=== PATIENT | male | born 1995 | race Caucasian/White ===

== ENCOUNTER 2019-04-13 00:01 | Emergency (ER) | payer OTHER ==
[~2019-04-13] VITALS: Ht 180.3 cm; Wt 81.8 kg
[2019-04-13 03:36] VITALS: BP 135/85
== END 2019-04-13 03:41 | disposition home or self-care (01) ==
LOC: M ED 00:01 → EDBD 00:01 → M ED 03:41
DX: F43.20 Adjustment disorder, unspecified (principal)

== ENCOUNTER 2019-12-14 09:19 | Emergency (ER) | payer OTHER ==
[~2019-12-14] VITALS: Ht 180.3 cm; Wt 89.8 kg
[2019-12-14] MEDS ORDERED: CYCLOBENZAPRINE 10MG TABLET PO ONE (10:15)
[2019-12-14] MEDS ORDERED: LIDOCAINE 5% (LIDODERM) PATCH TD ONE (10:15)
[2019-12-14] MEDS ORDERED: ACETAMINOPHEN 500 MG TAB PO ONE (10:15)
[2019-12-14 10:33] LABS: APPEARANCE, URINE CLEAR (CLEAR); BACTERIA, URINE AUTO NEGATIVE (NEGATIVE); BILIRUBIN, URINE AUTO NEGATIVE (NEGATIVE); BLOOD, URINE BLOOD NEGATIVE (NEGATIVE); COLOR, URINE YELLOW (YELLOW); GLUCOSE, URINE (UA) AUTO NEGATIVE (NEGATIVE); KETONE, URINE AUTO 1+ mg/dL (NEGATIVE); LEUKOCYTE ESTERASE, URINE AUTO NEGATIVE (NEGATIVE); NITRITE, URINE AUTO NEGATIVE (NEGATIVE); PROTEIN, URINE AUTO NEGATIVE (NEGATIVE); RBC, URINE AUTO 2 /HPF (0-3); SPECIFIC GRAVITY URINE AUTO 1.021 (1.002-1.035); SQUAMOUS EPITHELIAL CELL UR AU 0 /HPF (0-6); UROBILINOGEN, URINE AUTO 0.2 mg/dL (0.0-2.0); WBC, URINE AUTO 1 /HPF (0-3)
--- NOTE | 2019-12-14 11:02 | REPVR ---
PROCEDURE INFORMATION: Exam: XR Lumbosacral Spine, 4 or 5 Views Exam date and time: 12/14/2019 10:43 AM Age: 24 years old Clinical indication: Pain and injury or trauma; Fall; Sprain or strain, lumbar ligaments; Low back pain; Additional info: Low back pain/ fall TECHNIQUE: Imaging protocol: XR of the lumbosacral spine, 5 views. Other technique: AP, both oblique, lateral and spot lateral views of the lumbar spine are submitted. COMPARISON: No relevant prior studies available. FINDINGS: Vertebrae: Small anterior vertebral body marginal osteophytes at T12-L1 and L1-L2. No acute lumbar spinal bony injury identified. Normal alignment. Straightening of the lumbar lordosis is present consistent with muscular spasm. Soft tissues: Unremarkable. IMPRESSION: 1. No acute lumbar spinal bony injury identified. 2. Probable lumbar muscular spasm. Electronically signed by: Zion Sauceda On 12/14/2019 11:02:37 AM
--- NOTE | 2019-12-14 11:03 | REPVR ---
PROCEDURE INFORMATION: Exam: XR Thoracic Spine, 3 Views Exam date and time: 12/14/2019 10:52 AM Age: 24 years old Clinical indication: Pain in thoracic spine; Additional info: Low back pain/ fall TECHNIQUE: Imaging protocol: XR of the thoracic spine, 3 views. Other technique: AP and lateral views and a swimmer's lateral view of the thoracic spine are submitted. COMPARISON: No relevant prior studies available. FINDINGS: Vertebrae: Normal. No acute fracture. Normal alignment. Soft tissues: Unremarkable. IMPRESSION: No acute findings. Electronically signed by: Zion Sauceda On 12/14/2019 11:03:30 AM
--- NOTE | 2019-12-14 11:04 | REPVR ---
PROCEDURE INFORMATION: Exam: XR Sacrum and Coccyx, 2 or More Views Exam date and time: 12/14/2019 10:52 AM Age: 24 years old Clinical indication: Pain in coccyx area; Additional info: Low back pain/ fall TECHNIQUE: Imaging protocol: XR of the sacrum and coccyx, AP inlet and outlet, and lateral views. COMPARISON: No relevant prior studies available. FINDINGS: Bones/joints: Normal. No acute fracture. Soft tissues: Normal. IMPRESSION: No acute findings. Electronically signed by: Zion Sauceda On 12/14/2019 11:04:25 AM
[2019-12-14] MEDS ORDERED: LIDO5DIS41 TOP (12:15)
[2019-12-14] MEDS ORDERED: CYCL5TAB PO (12:15)
[2019-12-14 12:26] VITALS: BP 145/84
[2019-12-14] MEDS ORDERED: **NOTE PATIENT COMMENT** MISC XX SCH (21:00)
== END 2019-12-14 12:49 | disposition home or self-care (01) ==
LOC: M ED 09:19
DX: S39.012A Strain of muscle, fascia and tendon of lower back, initial encounter (principal); S30.0XXA Contusion of lower back and pelvis, initial encounter; W19.XXXA Unspecified fall, initial encounter; Y92.9 Unspecified place or not applicable; Y93.9 Activity, unspecified; Y99.9 Unspecified external cause status

== ENCOUNTER 2020-07-29 11:15 | Emergency (ER) | payer OTHER ==
[~2020-07-29] VITALS: Ht 180.3 cm; Wt 88.6 kg
[~2020-07-29 11:15] MED LIST: CYCL5TAB PO; LIDO5DIS41 TOP
[2020-07-29 13:37] VITALS: BP 121/73
== END 2020-07-29 13:38 | disposition home or self-care (01) ==
LOC: M ED 11:15
DX: F43.20 Adjustment disorder, unspecified (principal); Z87.820 Personal history of traumatic brain injury

== ENCOUNTER 2020-08-28 20:34 | Emergency (ER) | payer OTHER ==
[~2020-08-28] VITALS: Ht 180.3 cm; Wt 86.4 kg
[2020-08-28 21:24] LABS: HEMATOCRIT 47.8 % (42.0-52.0); HEMOGLOBIN 16.8 g/dl (13.5-17.5); MEAN CORPUSCULAR HEMOGLOBIN 30.7 pg (27.0-33.0); MEAN CORPUSCULAR HGB CONC 35.1 g/dl (32.0-36.5); MEAN CORPUSCULAR VOLUME 87.2 fl (80.0-96.0); PLATELET COUNT, AUTOMATED 299 10^3/uL (150-450); RED BLOOD COUNT 5.48 10^6/uL (4.30-6.10); WHITE BLOOD COUNT 11.1 10^3/uL (4.0-10.0)
[2020-08-28 21:45] LABS: AMPHETAMINES LEVEL URINE NEGATIVE (NEGATIVE); BARBITURATES URINE NEGATIVE (NEGATIVE); BENZODIAZEPINES URINE NEGATIVE (NEGATIVE); CANNABINOIDS URINE NEGATIVE (NEGATIVE); COCAINE METABOLITE URINE NEGATIVE (NEGATIVE); METHADONE URINE NEGATIVE (NEGATIVE); OPIATES URINE NEGATIVE (NEGATIVE); PHENCYCLIDINE URINE NEGATIVE (NEGATIVE)
[2020-08-28 22:01] LABS: ACETAMINOPHEN LEVEL < 2.0 UG/ML (10.0-30.0); ALT/SGPT 45 U/L (12-78); BILIRUBIN,DIRECT 0.3 MG/DL (0.0-0.2); BILIRUBIN,TOTAL 1.5 MG/DL (0.2-1.0); BLOOD UREA NITROGEN 16 MG/DL (7-18); CALCIUM LEVEL 9.4 MG/DL (8.5-10.1); CARBON DIOXIDE LEVEL 31 MEQ/L (21-32); CHLORIDE LEVEL 102 MEQ/L (98-107); CREATININE FOR GFR 1.22 MG/DL (0.70-1.30); ETHYL ALCOHOL (ETHANOL) < 0.003 % (0.000-0.010); GLOMERULAR FILTRATION RATE > 60.0 (>60); GLUCOSE, FASTING 96 MG/DL (70-100); POTASSIUM SERUM 4.2 MEQ/L (3.5-5.1); SALICYLATE LEVEL < 1.7 MG/DL (5.0-30.0); SODIUM LEVEL 137 MEQ/L (136-145); TOTAL PROTEIN 8.7 GM/DL (6.4-8.2)
[2020-08-28 23:16] VITALS: BP 136/78
== END 2020-08-28 23:17 | disposition home or self-care (01) ==
LOC: M ED 20:34
DX: F43.0 Acute stress reaction (principal); F17.290 Nicotine dependence, other tobacco product, uncomplicated; Z87.820 Personal history of traumatic brain injury